=== PATIENT | female | born 1985 | race American Indian/Alaskan Native ===

== ENCOUNTER 2016-07-26 22:46 | Emergency (ER) | payer SELFPAY ==
[2016-07-26 23:07] VITALS: BP 121/82
[2016-07-26] MEDS ORDERED: ZOFRAN ODT PO ONE (23:09)
[2016-07-26] MEDS ORDERED: TYLENOL PO ONE ×2 (23:10→23:21)
[2016-07-26] MEDS ORDERED: TYLENOL ONE (23:12)
[2016-07-27 00:23] LABS: Basophils % (Auto) 0.3 % (0.0-1.8); Hematocrit 40.6 % (30.3-42.9); Hemoglobin 13.2 gm/dl (10.1-14.3); Mean Corpuscular HGB Conc 32 % (30-34); Mean Corpuscular Hemoglobin 31 pg (28-32); Mean Corpuscular Volume 96 fl (79-97); Platelet Count 297 K/mm3 (140-440); Red Blood Count 4.22 M/mm3 (3.65-5.03); Red Cell Distribution Width 16.2 % (13.2-15.2); White Blood Count 6.7 K/mm3 (4.5-11.0)
[2016-07-27 00:37] LABS: Anion Gap 21 mmol/L; Blood Urea Nitrogen 12 mg/dL (7-17); Calcium 9.2 mg/dL (8.4-10.2); Carbon Dioxide 22 mmol/L (22-30); Chloride 99.9 mmol/L (98-107); Glucose 91 mg/dL (65-100); Potassium 3.5 mmol/L (3.6-5.0); Sodium 139 mmol/L (137-145)
--- NOTE | 2016-07-27 15:08 | ED Elopement Review ---
ED Pt Elopement review - Results review Lab results: Laboratory Tests 07/26/16 07/26/16 23:44 23:44 WBC 6.7 RBC 4.22 Hgb 13.2 Hct 40.6 MCV 96 MCH 31 MCHC 32 RDW 16.2 H Plt Count 297 Lymph % (Auto) 16.2 [place] % (Auto) 3.4 Eos % (Auto) 0.0 Baso % (Auto) 0.3 Lymph # 1.1 L [place] # 0.2 Eos # 0.0 Baso # 0.0 Seg Neutrophils % 80.1 H Seg Neutrophils # 5.3 Sodium 139 Carbon Dioxide 22 BUN 12 Creatinine 1.0 Estimated GFR > 60 BUN/Creatinine Ratio 12.00 Glucose 91 Calcium 9.2 Troponin T < 0.010 - Call Back decision Pt Call Back Decision: No action required
== END 2016-07-27 | disposition left against medical advice (07) ==
LOC: ED 22:46
DX: R07.9 Chest pain, unspecified (principal); R06.02 Shortness of breath; R11.10 Vomiting, unspecified; E03.9 Hypothyroidism, unspecified; Z53.21 Procedure and treatment not carried out due to patient leaving prior to being seen by health care provider
CPT/HCPCS: 36415; 80048; 84484; 85025; 93005; 93010; Q0162

== ENCOUNTER 2020-06-24 15:02 | Emergency (ER) | payer SELFPAY ==
[2020-06-24] MEDS ORDERED: ASPIRIN 325 MG TAB PO ONE (15:10)
[2020-06-24 15:39] LABS: Basophils # (Auto) 0.1 K/mm3 (0.0-0.1); Basophils % (Auto) 1.3 % (0.0-1.8); Eosinophils # (Auto) 0.1 K/mm3 (0.0-0.4); Eosinophils % (Auto) 1.6 % (0.0-4.3); Hemoglobin 12.6 gm/dl (10.1-14.3); Lymphocytes # (Auto) 3.8 K/mm3 (1.2-5.4); Mean Corpuscular HGB Conc 33 % (30-34); Mean Corpuscular Volume 109 fl (79-97); Monocytes # (Auto) 0.5 K/mm3 (0.0-0.8); Monocytes % (Auto) 6.6 % (0.0-7.3); Platelet Count 292 K/mm3 (140-440); Red Blood Count 3.49 M/mm3 (3.65-5.03); Red Cell Distribution Width 16.3 % (13.2-15.2)
--- NOTE | 2020-06-24 15:40 | XRay Report ---
CHEST 2 VIEWS INDICATION: Chest Pain. COMPARISON: None. FINDINGS: Support devices: None. Heart: Within normal limits. Lungs/Pleura: No dense infiltrate. Linear opacity right base medially. No significant pleural effus ion. IMPRESSION: Probable discoid atelectasis right base medially. Signer Name: Gregor Joyner MD Signed: 06/24/2020 3:35 PM Workstation Name: [id number]
[2020-06-24 15:58] LABS: BUN/Creatinine Ratio 11; Blood Urea Nitrogen 10 mg/dL (7-17); Calcium 10.1 mg/dL (8.4-10.2); Hemolysis Index 22
--- NOTE | 2020-06-24 18:01 | Emergency Department Report ---
ED Fever HPI - General Chief Complaint: Chest Pain Stated Complaint: SEVERE CHEST PAIN/ARM PAIN Time Seen by Provider: 06/24/20 15:48 ED Review of Systems ROS: Stated complaint: SEVERE CHEST PAIN/ARM PAIN Other details as noted in HPI ED Past Medical Hx - Past Medical History Hx Hypertension: Yes Additional medical history: hypothyroid. OBESITY - Surgical History Additional Surgical History: LEFT KNEE SURGERY - Social History Smoking Status: Never Smoker Substance Use Type: None - Medications Home Medications: Home Medications Medication Instructions Recorded Confirmed Last Taken Type Levothyroxine [Synthroid] 155 mcg PO QAM 09/27/15 09/27/15 09/27/15 08:00 Histor y ED Physical Exam - General Limitations: No Limitations ED Course Vital Signs 06/24/20 15:09 Temperature 98.5 F Pulse Rate 80 Respiratory 22 Rate Blood Pressure 115/60 O2 Sat by Pulse 98 Oximetry ED Medical Decision Making - Lab Data Result diagrams: 06/24/20 15:22 06/24/20 15:22 Critical care attestation.: If time is entered above; I have spent that time in minutes in the direct care of this critically ill patient, excluding procedure time. ED Disposition Condition: Stable
[2020-06-24 18:03] VITALS: BP 147/114
--- NOTE | 2020-06-24 18:20 | Emergency Department Report ---
ED Chest Pain HPI - General Chief Complaint: Chest Pain Stated Complaint: SEVERE CHEST PAIN/ARM PAIN Time Seen by Provider: 06/24/20 15:48 Source: patient Mode of arrival: Ambulatory Limitations: No Limitations - History of Present Illness Initial Comments: Patient is a 35-year-old F [place] female with no significant past medical history who is presenting with sharp chest pain. Patient states she has to hold her chest until the pain goes away. She states for the last several weeks she has been getting sharp pain in the left chest that occurs randomly. States she has some soreness in her left arm today during these episodes as well. She does have some associated shortness of breath. She denies a pleuritic component or exertional component to this discomfort. States that it can occur day and night and is random. Last for 20 to 30 minutes at a time. She denies cough cold congestion fevers or chills. Severity scale (0 -10): 8 - Related Data Home Medications Medication Instructions Recorded Confirmed Last Taken Levothyroxine [Synthroid] 155 mcg PO QAM 09/27/15 09/27/15 09/27/15 08:00 Allergies Allergy/AdvReac Type Severity Reaction Status Date / Time No Known Allergies Allergy Verified 06/24/20 15:08 Heart Score - HEART Score History: Slightly suspicious EKG: Normal Age: < 45 Risk factors: 1-2 risk factors Troponin: < normal limit HEART Score: 1 ED Review of Systems ROS: Stated complaint: SEVERE CHEST PAIN/ARM PAIN Other details as noted in HPI Comment: All other systems reviewed and negative ED Past Medical Hx - Past Medical History Hx Hypertension: Yes Additional medical history: hypothyroid. OBESITY - Surgical History Additional Surgical History: LEFT KNEE SURGERY - Social History Smoking Status: Light Tobacco Smoker Substance Use Type: Alcohol - Medications Home Medications: Home Medications Medication Instructions Recorded Confirmed Last Taken Type Levothyroxine [Synthroid] 155 mcg PO QAM 09/27/15 09/27/15 09/27/15 08:00 History ED Physical Exam - General Limitations: No Limitations General appearance: alert, in no apparent distress - Head Head exam: Present: atraumatic, normocephalic - Eye Eye exam: Present: normal appearance, PERRL, EOMI - ENT ENT exam: Present: mucous membranes moist - Neck Neck exam: Present: normal inspection - Respiratory Respiratory exam: Present: normal lung sounds bilaterally. Absent: respiratory distress, wheezes, rales, rhonchi - Cardiovascular Cardiovascular Exam: Present: regular rate, normal rhythm, normal heart sounds. Absent: systolic murmur, diastolic murmur, rubs, gallop - GI/Abdominal GI/Abdominal exam: Present: soft, normal bowel sounds. Absent: distended, tenderness, guarding, rebound - Extremities Exam Extremities exam: Present: normal inspection - Back Exam Back exam: Present: normal inspection - Neurological Exam Neurological exam: Present: alert, oriented X3 - Psychiatric Psychiatric exam: Present: normal affect, normal mood - Skin Skin exam: Present: warm, dry, intact, normal color. Absent: rash ED Course Vital Signs 06/24/20 06/24/20 06/24/20 15:09 15:51 16:01 Temperature 98.5 F Pulse Rate 80 75 66 Respiratory 22 21 17 Rate Blood Pressure 115/60 129/85 O2 Sat by Pulse 98 100 100 Oximetry 06/24/20 06/24/20 06/24/20 16:31 17:01 17:31 Temperature Pulse Rate 75 76 Respiratory 14 17 Rate Blood Pressure 137/92 153/105 153/105 O2 Sat by Pulse 100 99 Oximetry 06/24/20 18:01 Temperature Pulse Rate 62 Respiratory 13 Rate Blood Pressure 147/114 O2 Sat by Pulse 100 Oximetry ED Medical Decision Making - Lab Data Result diagrams: 06/24/20 15:22 06/24/20 15:22 Lab Results 06/24/20 06/24/20 06/24/20 Range/Units 15:22 15:22 17:01 WBC 7.9 (4.5-11.0) K/mm3 RBC 3.49 L (3.65-5.03) M/mm3 Hgb 12.6 (10.1-14.3) gm/dl Hct 38.0 (30.3-42.9) % MCV 109 H (79-97) fl MCH 36 H (28-32) pg MCHC 33 (30-34) % RDW 16.3 H (13.2-15.2) % Plt Count 292 (140-440) K/mm3 Lymph % (Auto) 48.0 H (13.4-35.0) % [place] % (Auto) 6.6 (0.0-7.3) % Eos % (Auto) 1.6 (0.0-4.3) % Baso % (Auto) 1.3 (0.0-1.8) % Lymph # (Auto) 3.8 (1.2-5.4) K/mm3 [place] # (Auto) 0.5 (0.0-0.8) K/mm3 Eos # (Auto) 0.1 (0.0-0.4) K/mm3 Baso # (Auto) 0.1 (0.0-0.1) K/mm3 Seg Neutrophils % 42.5 (40.0-70.0) % Seg Neutrophils # 3.3 (1.8-7.7) K/mm3 Sodium 138 (137-145) mmol/L Potassium 4.4 (3.6-5.0) mmol/L Chloride 101.3 (98-107) mmol/L Carbon Dioxide 29 (22-30) mmol/L Anion Gap 12 mmol/L BUN 10 (7-17) mg/dL Creatinine 0.9 (0.6-1.2) mg/dL Estimated GFR > 60 ml/min BUN/Creatinine Ratio 11 % Glucose 83 (65-100) mg/dL Calcium 10.1 (8.4-10.2) mg/dL Troponin T < 0.010 < 0.010 (0.00-0.029) ng/mL - EKG Data -: EKG Interpreted by Or EKG shows normal: sinus rhythm, axis, intervals, QRS complexes, ST-T waves Rate: normal - EKG Data Interpretation: normal EKG - Radiology Data [facility] [address] [place] [address] XRay Report Signed Patient: GLENDA MATHEW MR#: [id number] : 1985 Acct:[id number] Age/Sex: 35 / F ADM Date: 06/24/20 Loc: ED Attending Dr: Ordering Physician: ED MD WILMER Date of Service: 06/24/20 Procedure(s): XR chest routine 2V Accession Number(s): [id number] cc: ED MD WILMER Fluoro Time In Minutes: CHEST 2 VIEWS INDICATION: Chest Pain. COMPARISON: None. FINDINGS: Support devices: None. Heart: Within normal limits. Lungs/Pleura: No dense infiltrate. Linear opacity right base medially. No significant pleural effusion. IMPRESSION: Probable discoid atelectasis right base medially. Signer Name: Gregor Joyner MD Signed: 06/24/2020 3:35 PM Workstation Name: [id number] Transcribed By: PAULA Dictated By: Gregor Joyner MD Electronically Authenticated By: Gregor Joyner MD Signed Date/Time: 06/24/20 1535 - Medical Decision Making Patient with some atypical discomfort that has been going on for several weeks. For 2 troponins negative here. Laboratory studies unremarkable. Chest x-ray normal EKG is within normal limits as well. Patient will be referred to cardiology for possible echocardiogram. Patient stable for discharge. Critical care attestation.: If time is entered above; I have spent that time in minutes in the direct care of this critically ill patient, excluding procedure time. ED Disposition Clinical Impression: Atypical chest pain Disposition: DC-01 TO HOME OR SELFCARE Is pt being admited?: No Does the pt Need Aspirin: No Condition: Stable Instructions: Chest Pain (ED), Nonspecific Chest Pain, Adult Referrals: DEMARCO SANTANA MD [Staff Physician] - 3-5 Days Time of Disposition: 18:20
== END 2020-06-24 18:27 | disposition home or self-care (01) ==
LOC: ED 15:02
DX: R07.89 Other chest pain (principal); F17.200 Nicotine dependence, unspecified, uncomplicated; I10 Essential (primary) hypertension; E03.9 Hypothyroidism, unspecified; E66.9 Obesity, unspecified; Z68.41 Body mass index [BMI] 40.0-44.9, adult; Z79.899 Other long term (current) drug therapy; Z98.890 Other specified postprocedural states
CPT/HCPCS: 36415; 71046; 80048; 84484; 85025; 93005